=== PATIENT | female | born 1980 | race African-American/Black ===

== ENCOUNTER 2017-05-11 21:34 | Emergency (ER) | payer SELFPAY ==
[2017-05-11] MEDS ORDERED: Ondansetron ODT 4 MG TAB ONE (22:09)
[2017-05-11] MEDS ORDERED: Acetaminophen 500 MG TAB ONE (22:09)
[2017-05-11 22:16] LABS: Bilirubin Small (Negative); Blood, Urine Negative (Negative); Clarity CLOUDY (Clear); Glucose, Urine (Dipstick) Negative (Negative); Leukocyte Small (Negative); Nitrite Negative (Negative); Protein, Urine (Dipstick) 30 mg/dL (Neg-Trace); Specific Gravity, Urine 1.027 (1.002-1.036); pH, Urine 7.5 (5.0-9.0)
[2017-05-11 22:17] LABS: Bacteria/HPF 1+ HPF (None Seen); Hyaline Casts/LPF 0-3 HYALINE CAST LPF (0-3 Hyaline); Pathc Cast-AUWi Flag 0.67 (0-2.49); RBC/HPF 0-3 HPF (0-3)
== END 2017-05-11 23:12 | disposition home or self-care (01) ==
LOC: ERS 21:34
DX: J18.9 Pneumonia, unspecified organism (principal); I10 Essential (primary) hypertension; Z71.6 Tobacco abuse counseling
CPT/HCPCS: 81003; 81015; 87804; 99406; Q0162

== ENCOUNTER 2018-01-12 08:10 | Emergency (ER) | payer SELFPAY | END 2018-01-12 09:30 | disposition home or self-care (01) | LOC: ERS 08:10 | DX: B30.9 Viral conjunctivitis, unspecified (principal); I10 Essential (primary) hypertension | CPT/HCPCS: 99283 ==

== ENCOUNTER 2018-07-23 10:10 | Outpatient (CLI) | payer MEDICAID ==
--- NOTE | 2018-07-23 11:14 | MMO ---
Bilateral MAMMO Bilat Diag [facility]. CLINICAL HISTORY: Patient is 38 years old and is seen for diagnostic exam. The patient has no family history of breast cancer. The patient has no personal history of cancer. VIEWS: The views performed were: bilateral craniocaudal; bilateral craniocaudal with tomosynthesis; bilateral mediolateral oblique; bilateral mediolateral oblique with tomosynthesis; and bilateral mediolateral. FILMS COMPARED: The present examination has been compared to a prior imaging study performed at [facility] on 07/23/2018. MAMMOGRAM FINDINGS: There are no suspicious masses, suspicious calcifications, or new areas of architectural distortion. There are no mammographic or sonographic abnormalities in the area of palpable concern. The patient is referred back to her clinician. Negative imaging findings should not preclude biopsy if clinical findings are suspicious. IMPRESSION: THERE ARE NO MAMMOGRAPHIC OR SONOGRAPHIC ABNORMALITIES IN THE AREA OF PALPABLE CONCERN. THE PATIENT IS REFERRED BACK TO HER CLINICIAN. NEGATIVE IMAGING FINDINGS SHOULD NOT PRECLUDE BIOPSY IF CLINICAL FINDINGS ARE SUSPICIOUS. ANY DECISION TO BIOPSY SHOULD BE BASED ON CLINICAL ASSESSMENT. THE RESULTS OF THIS EXAM WERE SENT TO THE PATIENT. ACR BI-RADS Category 1 - Negative MAMMOGRAPHY NOTE: 1. A negative mammogram report should not delay a biopsy if a dominant of clinically suspicious mass is present. 2. Approximately 10% to 15% of breast cancers are not detected by mammography. 3. Adenosis and dense breasts may obscure an underlying neoplasm.
--- NOTE | 2018-07-23 11:27 | ULT ---
LIMITED RIGHT BREAST ULTRASOUND: Date: 07-23-18 Provided Clinical History: Palpable abnormality. FINDINGS: Limited sonographic interrogation was performed of the right breast in the retroareolar region, in th e region of reported palpable concern. Sonographic appearance of the breast parenchyma in this region is normal. IMPRESSION: BIRADS category 1 - negative. Negative imaging findings should not preclude further evaluation of a c linically suspicious area. The patient was referred back to her clinician. POS: OFF
== END 2018-07-23 10:11 | disposition home or self-care (01) ==
LOC: BICMAMMO 10:10
DX: N63.10 Unspecified lump in the right breast, unspecified quadrant (principal)
CPT/HCPCS: 77066; G0279

== ENCOUNTER 2019-12-11 09:33 | Day surgery (SDC) | payer MEDICAID, OTHER ==
[2019-12-11] MEDS ORDERED: Rocuronium Bromide 10 MG/ML (10ML VIAL) ONE (10:16)
[2019-12-11] MEDS ORDERED: Succinylcholine Chloride 20 MG/ML 10 ml SYRINGE FS ONE (10:16)
[2019-12-11] MEDS ORDERED: PROPOFOL 200 MG/20 ML VIAL ONE (10:16)
[2019-12-11] MEDS ORDERED: Glycopyrrolate 0.2 MG/ML 5 ML SYRINGE ONE (10:16)
[2019-12-11] MEDS ORDERED: Ondansetron PF 4 MG/2 ML Vial ONE ×2 (10:16→10:43)
[2019-12-11] MEDS ORDERED: Labetalol HCl 100 MG/20 ML VIAL ONE (10:16)
[2019-12-11] MEDS ORDERED: Dexamethasone 20 MG/5 ML VIAL ONE (10:16)
[2019-12-11] MEDS ORDERED: Lidocaine 1% PF 5 ML VIAL ONE (10:16)
[2019-12-11 10:29] LABS: #Lymphocytes 1.7 thou/uL (1.20-3.40); #Monocytes 0.4 thou/uL (0.11-0.59); %Basophils 0.3 % (0.0-1.0); %Eosinophils 0.4 % (0.0-10.0); %Lymphocytes 12.9 % (21.0-51.0); %Neutrophils 83.4 % (42.0-75.0); Hemoglobin 13.9 g/dL (12.0-16.0); Mean Corpuscular HGB CONC 31.4 g/dL (32.0-36.0); Mean Corpuscular Hemoglobin 26.2 pg (27.0-31.0); Mean Corpuscular Volume 83.4 fL (78.0-98.0); Mean Platelet Volume 9.1 fL (7.4-10.4); Platelet Count 341 thou/uL (130-400); RBC Distribution Width 17.4 % (11.5-14.5); Red Blood Cell (RBC) Count 5.31 mill/uL (4.20-5.40); White Blood Cell (WBC) Count 13.2 thou/uL (4.8-10.8)
[2019-12-11 10:49] LABS: ALT (SGPT) 8 U/L (8-55); AST (SGOT) 13 U/L (5-34); Albumin 3.8 g/dL (3.5-5.0); Alkaline Phosphatase 55 U/L (40-110); Anion Gap 13 mmol/L (10-20); BUN (Urea Nitrogen) 10 mg/dL (7.0-18.7); Bilirubin, Total 0.3 mg/dL (0.2-1.2); Calc. Creatinine Clearance 0 mL/min (70-130); Carbon Dioxide 24 mmol/L (22-29); Chloride 104 mmol/L (98-107); Estimated GFR-MDRD Greater than 90; Globulin 4.5 g/dL (2.4-3.5); Glucose 107 mg/dL (70-105); Lipase 31 U/L (8-78); Potassium 3.4 mmol/L (3.5-5.1); Protein, Total 8.3 g/dL (6.0-8.3); Sodium 138 mmol/L (136-145)
[2019-12-11] MEDS ORDERED: Morphine 4 MG/ML VIAL ONE (12:05)
--- NOTE | 2019-12-11 13:18 | ULT ---
RIGHT UPPER QUADRANT ULTRASOUND: INDICATION: Right upper quadrant abdominal pain. COMPARISON: None. FINDINGS: There are numerous stones within the gallbladder. No sonographic Valencia's sign is reported. Common bile duct measures5.2 mm which is upper limits of normal. No focal hepatic lesion is evident. The v isualized aspects of the pancreas are unremarkable appearing. The right kidney measured 12.1 x 6.2 x 7 cm. No focal renal lesion or hydronephrosis is evident. Images throughout the study are limited due to patient's body habitus. IMPRESSION: 1. Cholelithiasis without definite sonographic evidence of acute cholecystitis. 2. Common bile duct is upper limits of normal measuring 5.2 mm. POS: BH
[2019-12-11] MEDS ORDERED: Ketorolac Tromethamine 30 MG/ML VIAL ONE (14:26)
[2019-12-11 14:37] LABS: BHCG - Serum Negative (NEGATIVE); Pregs Control Background? CLEAR/WHITE (CLR/WHITE); Pregs Control Bar Appear? YES (CONTROL BAR)
[2019-12-11] MEDS ORDERED: Bupivacaine PF 0.5% 30 ML VIAL ONE (14:55)
[2019-12-11] MEDS ORDERED: Lidocaine 1% w/Epinephrine 1:100K 20 ML VIAL ONE (14:55)
[2019-12-11] MEDS ORDERED: Fentanyl 100 MCG/2 ML VIAL ONE ×3 (15:59→17:53)
--- NOTE | 2019-12-11 16:37 | HP ---
HISTORY OF PRESENT ILLNESS: Mary Jolley is 39-year-old black female, morbidly obese, 158 kg, 182 cm tall; presents with several month history of mid epigastric and right upper quadrant pain that became worse; presented to the emergency room. Ultrasound revealed gallstones. Bile duct caliber 6 mm. Liver function tests are normal. She reports a positive COVID test screen because of an exposure, positive on 11/16/2019 but asymptomatic. She tested negative on 12/03/2019 and has the reports on her phone. She has a caregiver. ALLERGIES: NONE. TOBACCO: Socially. ALCOHOL: Socially. MEDICATIONS: 1. Amlodipine. 2. Lisinopril. PAST SURGICAL HISTORY: Tubal ligation, left knee surgery. PAST MEDICAL HISTORY: Morbidly obese, metabolic syndrome, and hypertension. REVIEW OF SYSTEMS: Ten-point noncontributory. FAMILY HISTORY: Noncontributory. PHYSICAL EXAMINATION: VITAL SIGNS: 18 respiratory rate, 49 heart rate, 97.4 degrees, 153/70, 158 kg, and 182 cm. HEAD, EARS, EYES, NOSE, AND THROAT: Unremarkable. LUNGS: Clear to auscultation. CARDIAC: Regular rate and rhythm without murmur or gallop. ABDOMEN: Soft, obese. Positive Valencia sign. EXTREMITIES: Unremarkable. LABORATORY DATA: White count 13, hemoglobin 13. Comprehensive metabolic profile is normal. Glucose 107. ASSESSMENT/PLAN: 1. Cholecystitis, cholelithiasis. She has received Levaquin, Toradol, and Tylenol. We will plan laparoscopic cholecystectomy today. She understands risks of infection, bleeding, or visceral or bilary injury and consents. 2. Morbid obesity. 3. Hypertension. Job ID: [id number]
[2019-12-11] MEDS ORDERED: Propofol 500 MG/50 ML VIAL ONE (17:05)
[2019-12-11] MEDS ORDERED: PROPOFOL 20 ML ONE (17:06)
--- NOTE | 2019-12-11 17:55 | OP ---
DATE OF PROCEDURE: 12/11/2019 PREOPERATIVE DIAGNOSES: Acute cholecystitis, chronic cholecystitis, cholelithiasis, morbid obesity. POSTOPERATIVE DIAGNOSES: Acute cholecystitis, chronic cholecystitis, cholelithiasis, morbid obesity. PROCEDURE PERFORMED: Laparoscopic video cholecystectomy. ANESTHESIA: General, local 0.5% Marcaine 30 mL mixed with 1% Xylocaine with epinephrine 20 mL. DESCRIPTION OF PROCEDURE: The patient was taken to the operating room where under general anesthesia in supine position, abdomen was prepared with ChloraPrep and draped in routine fashion. Local anesthetic mixture was infiltrated into skin and subcutaneous tissue about each port site. Supraumbilical incision made, pneumoperitoneum to 15 mmHg was obtained with a Veress needle, replacing with a 5 port, video laparoscope inserted. Right subxiphoid incision was made and 11 port placed. Right subcostal incision made in midclavicular anterior axillary line, and 5 port placed. Liver appeared to be normal. The gallbladder was acutely inflamed. Fundus grasped, retracted cephalad, infundibulum grasped after dissecting omental adhesions, gaining cautery hemostasis. The cystic artery and duct dissected free, critical view obtained. Cystic artery and duct doubly clipped proximally and divided. Gallbladder dissected free from liver bed obtaining good hemostasis prior to division of final peritoneal attachments. Gallbladder and contents, multiple stones removed and submitted to Pathology. Good hemostasis obtained with cautery. Mariia was used. Irrigant and pneumoperitoneum were evacuated. All instruments were removed. All skin incisions were approximated with interrupted subdermal 4-0 Monocryl and Milbridge glue applied. Job ID: [id number]
[2019-12-11] MEDS ORDERED: HYDROcodone/Acetaminophen 5/325 mg Tablet ONE (18:37)
== END 2019-12-11 19:03 | disposition home or self-care (01) ==
LOC: ERS 09:33 → SDC 15:32
PROVIDERS: ATTEND Specialist
PROC: 0FT44ZZ Resection of Gallbladder, Percutaneous Endoscopic Approach (ICD-10-PCS; principal; 2019-12-11)
DX: K80.12 Calculus of gallbladder with acute and chronic cholecystitis without obstruction (principal); I10 Essential (primary) hypertension; E88.81 Metabolic syndrome and other insulin resistance; E66.01 Morbid (severe) obesity due to excess calories; K21.9 Gastro-esophageal reflux disease without esophagitis; Z79.899 Other long term (current) drug therapy; Z86.19 Personal history of other infectious and parasitic diseases
CPT/HCPCS: 76705; 80053; 83690; 84703; 85025; 88304; 93005; 96365; 96372; 96375; J0500; J1100; J1885; J1956; J2270; J2405; J2704; J3010; S0020

== ENCOUNTER 2020-04-14 16:40 | Emergency (ER) | payer MEDICAID ==
[2020-04-14] MEDS ORDERED: Morphine 4 MG/ML VIAL ONE (17:01)
[2020-04-14] MEDS ORDERED: Ondansetron PF 4 MG/2 ML Vial ONE (17:01)
[2020-04-14 17:29] LABS: #Basophils 0.1 thou/uL (0.0-0.2); #Eosinphils 0.2 thou/uL (0.0-0.7); #Lymphocytes 2.3 thou/uL (1.20-3.40); #Monocytes 0.6 thou/uL (0.11-0.59); %Basophils 0.4 % (0.0-1.0); %Eosinophils 1.4 % (0.0-10.0); %Lymphocytes 16.5 % (21.0-51.0); %Neutrophils 77.7 % (42.0-75.0); Hemoglobin 13.2 g/dL (12.0-16.0); Mean Corpuscular HGB CONC 31.9 g/dL (32.0-36.0); Mean Corpuscular Hemoglobin 25.9 pg (27.0-31.0); Mean Corpuscular Volume 81.3 fL (78.0-98.0); Platelet Count 361 thou/uL (130-400); RBC Distribution Width 16.5 % (11.5-14.5); Red Blood Cell (RBC) Count 5.08 mill/uL (4.20-5.40); White Blood Cell (WBC) Count 14.1 thou/uL (4.8-10.8)
[2020-04-14 17:56] LABS: ALT (SGPT) Less than 7 U/L (8-55); AST (SGOT) 11 U/L (5-34); Albumin 3.5 g/dL (3.5-5.0); Alkaline Phosphatase 66 U/L (40-110); Anion Gap 15 mmol/L (10-20); BUN (Urea Nitrogen) 5 mg/dL (7.0-18.7); Bilirubin, Total 0.5 mg/dL (0.2-1.2); Calc. Creatinine Clearance 0 mL/min (70-130); Calcium 8.8 mg/dL (7.8-10.44); Carbon Dioxide 23 mmol/L (22-29); Chloride 103 mmol/L (98-107); Globulin 4.9 g/dL (2.4-3.5); Glucose 85 mg/dL (70-105); Lipase 13 U/L (8-78); Potassium 3.7 mmol/L (3.5-5.1); Protein, Total 8.4 g/dL (6.0-8.3); Sodium 137 mmol/L (136-145)
== END 2020-04-14 19:45 | disposition home or self-care (01) ==
LOC: ERS 16:40
DX: K42.9 Umbilical hernia without obstruction or gangrene (principal); K21.9 Gastro-esophageal reflux disease without esophagitis; I10 Essential (primary) hypertension; Z79.899 Other long term (current) drug therapy
CPT/HCPCS: 80053; 83690; 85025; 96374; 96375; J2270; J2405

== ENCOUNTER 2020-05-16 08:45 | Emergency (ER) | payer MEDICAID, OTHER, SELFPAY ==
[2020-05-16] MEDS ORDERED: Fentanyl 100 MCG/2 ML VIAL ONE (09:21)
[2020-05-16 09:30] LABS: #Basophils 0.1 thou/uL (0.0-0.2); #Eosinphils 0.5 thou/uL (0.0-0.7); #Lymphocytes 2.6 thou/uL (1.20-3.40); #Monocytes 0.6 thou/uL (0.11-0.59); #Neutrophils 7.4 thou/uL (1.40-6.50); %Basophils 1.1 % (0.0-1.0); %Eosinophils 4.4 % (0.0-10.0); %Monocytes 5.1 % (0.0-10.0); %Neutrophils 66.3 % (42.0-75.0); Hemoglobin 13.8 g/dL (12.0-16.0); Mean Corpuscular HGB CONC 31.7 g/dL (32.0-36.0); Mean Corpuscular Hemoglobin 25.3 pg (27.0-31.0); Mean Corpuscular Volume 79.8 fL (78.0-98.0); Mean Platelet Volume 8.7 fL (7.4-10.4); Platelet Count 388 thou/uL (130-400); RBC Distribution Width 17.2 % (11.5-14.5); Red Blood Cell (RBC) Count 5.47 mill/uL (4.20-5.40); White Blood Cell (WBC) Count 11.2 thou/uL (4.8-10.8)
[2020-05-16 09:51] LABS: ALT (SGPT) Less than 7 U/L (8-55); AST (SGOT) 9 U/L (5-34); Albumin 3.5 g/dL (3.5-5.0); Alkaline Phosphatase 61 U/L (40-110); Anion Gap 11 mmol/L (10-20); BUN (Urea Nitrogen) 8 mg/dL (7.0-18.7); Bilirubin, Total 0.3 mg/dL (0.2-1.2); Calc. Creatinine Clearance 0 mL/min (70-130); Calcium 8.7 mg/dL (7.8-10.44); Carbon Dioxide 27 mmol/L (22-29); Chloride 105 mmol/L (98-107); Globulin 4.6 g/dL (2.4-3.5); Glucose 89 mg/dL (70-105); Lipase 28 U/L (8-78); Potassium 3.8 mmol/L (3.5-5.1); Protein, Total 8.1 g/dL (6.0-8.3); Sodium 139 mmol/L (136-145)
[2020-05-16 10:11] LABS: BHCG - Serum Negative (NEGATIVE); Pregs Control Background? CLEAR/WHITE (CLR/WHITE); Pregs Control Bar Appear? YES (CONTROL BAR)
[2020-05-16 11:13] LABS: Bilirubin Negative (Negative); Blood, Urine Negative (Negative); Glucose, Urine (Dipstick) Negative (Negative); Ketone, Urine Negative (Negative); Leukocyte Negative (Negative); Nitrite Negative (Negative); Protein, Urine (Dipstick) Negative (Neg-Trace); Urobilinogen 0.2 mg/dL (Less than 2); pH, Urine 6.5 (5.0-9.0)
[2020-05-16 11:20] LABS: Clarity Clear (Clear)
== END 2020-05-16 12:11 | disposition home or self-care (01) ==
LOC: ERS 08:45
DX: K42.9 Umbilical hernia without obstruction or gangrene (principal); I10 Essential (primary) hypertension; K21.9 Gastro-esophageal reflux disease without esophagitis; Z79.899 Other long term (current) drug therapy
CPT/HCPCS: 80053; 81003; 83605; 83690; 84703; 85025; 96374; J3010

== ENCOUNTER 2020-06-23 10:16 | Outpatient (CLI) | payer OTHER, SELFPAY ==
[2020-06-23 12:35] LABS: BHCG - Serum Negative (NEGATIVE); Pregs Control Background? CLEAR/WHITE (CLR/WHITE); Pregs Control Bar Appear? YES (CONTROL BAR)
[2020-06-23 21:53] LABS: SARS-CoV-2 PCR by NAA Not Detected (NotDetected)
== END 2020-06-23 10:17 | disposition home or self-care (01) ==
LOC: LABBT 10:16
PROVIDERS: ATTEND Specialist
DX: Z01.812 Encounter for preprocedural laboratory examination (principal); K43.2 Incisional hernia without obstruction or gangrene; Z20.822 Contact with and (suspected) exposure to COVID-19
CPT/HCPCS: 84703; 87635; 93005; 93010; U0003; U0005

== ENCOUNTER 2020-06-28 06:55 | Day surgery (SDC) | payer OTHER, SELFPAY ==
[2020-06-26 13:59] VITALS: BMI 61.0
[2020-06-28] MEDS ORDERED: Gabapentin 300 MG CAP ONE (07:44)
[2020-06-28] MEDS ORDERED: Acetaminophen 500 MG TAB ONE (07:44)
[2020-06-28] MEDS ORDERED: XYLOCAINE 2%-EPI 1:100,000 20 ML VIAL ONE (08:09)
[2020-06-28] MEDS ORDERED: Bupivacaine 0.25% HCL 30 ML VIAL ONE (08:09)
[2020-06-28] MEDS ORDERED: Scopolamine 1.5 mg/72 hour Patch ONE (08:28)
[2020-06-28] MEDS ORDERED: Midazolam HCl 2 mg/2 ml Vial ONE ×2 (08:34→08:50)
[2020-06-28] MEDS ORDERED: Ketorolac Tromethamine 30 MG/ML VIAL ONE ×2 (08:48→09:14)
[2020-06-28] MEDS ORDERED: Fentanyl 100 MCG/2 ML VIAL ONE ×5 (08:50→16:47)
[2020-06-28] MEDS ORDERED: HYDROmorphone 0.5 MG/0.5 ML SYRINGE ONE (08:50)
[2020-06-28] MEDS ORDERED: Lidocaine 2% Jelly 5 ML TUBE ONE (08:50)
[2020-06-28] MEDS ORDERED: Rocuronium Bromide 10 MG/ML (10ML VIAL) ONE (09:14)
[2020-06-28] MEDS ORDERED: Succinylcholine 200 MG/10 ml SYRINGE FS ONE (09:14)
[2020-06-28] MEDS ORDERED: Dexamethasone 20 MG/5 ML VIAL ONE (09:14)
[2020-06-28] MEDS ORDERED: Ondansetron PF 4 MG/2 ML Vial ONE (09:14)
[2020-06-28] MEDS ORDERED: Lidocaine 1% PF 5 ML VIAL ONE (09:14)
[2020-06-28] MEDS ORDERED: PROPOFOL 200 MG/20 ML VIAL ONE (09:14)
[2020-06-28] MEDS ORDERED: SUGAMMADEX SODIUM 500 MG/5 ML VIAL ONE (14:39)
[2020-06-28] MEDS ORDERED: Promethazine HCl 25 MG/ML VIAL SLOW IVP PRN (16:22)
[2020-06-28] MEDS ORDERED: Ondansetron HCl/PF 4 MG/2 ML Vial IVP PRN (16:22)
[2020-06-28] MEDS ORDERED: Promethazine HCl 25 MG/ML VIAL IM PRN (16:22)
[2020-06-28] MEDS ORDERED: HYDROcodone/Acetaminophen 5/325 mg Tablet ONE ×2 (17:30→18:13)
== END 2020-06-28 18:34 | disposition home or self-care (01) ==
LOC: SDC 06:55
PROVIDERS: ATTEND Specialist
PROC: 0WUF4JZ Supplement Abdominal Wall with Synthetic Substitute, Percutaneous Endoscopic Approach (ICD-10-PCS; principal; 2020-06-28)
DX: K43.9 Ventral hernia without obstruction or gangrene (principal); E66.01 Morbid (severe) obesity due to excess calories; Z68.44 Body mass index [BMI] 60.0-69.9, adult; Z79.899 Other long term (current) drug therapy; Z88.5 Allergy status to narcotic agent
CPT/HCPCS: C1781; J0690; J1100; J1170; J1885; J2250; J2405; J2704; J3010; S0020